=== PATIENT | female | born 1980 | race Caucasian/White ===

== ENCOUNTER 2016-11-07 19:46 | Emergency (ER) | payer MEDICAID ==
[~2016-11-07] VITALS: Ht 162.6 cm; Wt 90.7 kg
[2016-11-07 20:00] VITALS: BP 142/86; PULSE 83; RESP 18; TEMP 98.1; O2SAT 98
--- NOTE | 2016-11-07 21:10 | NUR ---
ATA Richardson examining patient in triage room.
[2016-11-07] MEDS ORDERED: IBUPROFEN 600 MG TABLET PO ONE (21:30)
--- NOTE | 2016-11-07 21:30 | NUR ---
Patient called for room placement and unable to find patient in the waiting room.
--- NOTE | 2016-11-07 22:25 | NUR ---
Patient returned to ED, Stating she was waiting in the parking lot. ATA Richardson informed.
--- NOTE | 2016-11-07 22:26 | NUR ---
Pt came into the ER in stable condition. Pt c/o bilat hand pain and rash. Pt present w/ redness and swelling to bilat hands. Pt states that she is unaware of cause. -sob -chest pain. No acute distress noted at this time, will continue to monitor
--- NOTE | 2016-11-07 22:29 | NUR ---
Patient to ER to gown for evaluation. Side rails up. Report given to
[2016-11-07 22:48] VITALS: BP 142/86; PULSE 83; RESP 18; TEMP 98.1; O2SAT 98
--- NOTE | 2016-11-07 22:48 | NUR ---
Patient given written and verbal discharge instructions and verbalizes understanding. ER MD discussed with patient the results and treatment provided. Given copies of tests performed in ER. Patient in stable condition. ID arm band removed. IV catheter removed intact and dressing applied, no active bleeding. Rx of Kenalog and Motrin 800 given. Patient educated on pain management and to follow up with PMD. Pain Scale 2/10. Opportunity for questions provided and answered.
== END 2016-11-07 22:48 | disposition home or self-care (01) ==
LOC: SED 19:46
DX: L25.9 Unspecified contact dermatitis, unspecified cause (principal); J45.909 Unspecified asthma, uncomplicated; Z90.49 Acquired absence of other specified parts of digestive tract
CPT/HCPCS: 99283